=== PATIENT | female | born 2000 | race American Indian/Alaskan Native ===

== ENCOUNTER 2019-08-20 12:48 | Emergency (ER) | payer SELFPAY ==
--- NOTE | 2019-08-20 15:24 | Event Note ---
ED Screening Note ED Screening Note: this morning began having vaginal bleeding she is currently 12 weeks lower abd cramping states she is also having vaginal discharge which is now a different color LNMP: 05/26/19 states she moved here from [place], does not have an LOBBY ATTENDANT here /P:0/A:1 This initial assessment/diagnostic orders/clinical plan/treatment(s) is/are subject to change based on patients health status, clinical progression and re- assessment by fellow clinical providers in the ED. Further treatment and workup at subsequent clinical providers discretion. Patient/guardian urged not to elope from the ED as their condition may be serious if not clinically assessed and managed. Initial orders include: labs, UA, US
[2019-08-20 15:52] LABS: Basophils # (Auto) 0.1 K/mm3 (0.0-0.1); Basophils % (Auto) 0.5 % (0.0-1.8); Eosinophils # (Auto) 0.3 K/mm3 (0.0-0.4); Hematocrit 36.5 % (30.3-42.9); Hemoglobin 12.1 gm/dl (10.1-14.3); Lymphocytes # (Auto) 3.4 K/mm3 (1.2-5.4); Lymphocytes % (Auto) 23.2 % (13.4-35.0); Mean Corpuscular HGB Conc 33 % (30-34); Mean Corpuscular Volume 91 fl (79-97); Monocytes # (Auto) 0.7 K/mm3 (0.0-0.8); Monocytes % (Auto) 4.9 % (0.0-7.3); Platelet Count 362 K/mm3 (140-440); Red Blood Count 4.01 M/mm3 (3.65-5.03); Red Cell Distribution Width 13.6 % (13.2-15.2)
--- NOTE | 2019-08-20 16:46 | Ultrasound Report ---
ULTRASOUND OBSTETRIC INDICATION: 12 weeks with lower abdominal/pelvic cramping and vaginal spotting. TECHNIQUE: Transabdominal. COMPARISON: None available. FINDINGS: GESTATIONAL SAC: Well-defined oval shape and intrauterine in location. YOLK SAC: No significant abnormality. EMBRYO/FETUS: No significant abnormality. - [place]-Rump Length = 3.97 cm = 10 weeks, 6 day(s). - Heart Rate = None detected. ADNEXA: No significant abnormality. FREE FLUID: None. ADDITIONAL FINDINGS: None. IMPRESSION: First trimester intrauterine as above without sonographic detection of cardiac activi ty, which is concerning for demise. Please correlate with the clinical findings. Signer Name: Asif Childs MD Signed: 08/20/2019 4:42 PM Workstation Name: [id number]
[2019-08-20 16:55] LABS: Bilirubin,Urine NEG (Negative); Blood,Urine SM (Negative); Color,Urine Straw (Yellow); Protein,Urine <15 mg/dL mg/dL (Negative); Urobilinogen,Urine < 2.0 mg/dL (<2.0); WBC,Urine < 1.0 /HPF (0.0-6.0)
--- NOTE | 2019-08-20 19:34 | Emergency Department Report ---
ED Female HPI - General Chief complaint: Urogenital-Female Stated complaint: POSS MISCARRAGE Time Seen by Provider: 08/20/19 15:22 Source: patient Mode of arrival: Ambulatory Limitations: No Limitations - History of Present Illness Initial comments: 18-year-old female this morning began having vaginal bleeding . She is currently 12 weeks . Having lower abd cramping States she is also having vaginal discharge which is now a different color. LNMP: 05/26/19. States she moved here from [place], does not have an HEAT TREAT TECHNICIAN here. /P:0/A:1 Patient denies any past medical history currently takes no medications on a daily basis has no known drug allergies. Reports the pains a 4 out of 10. MD Complaint: vaginal bleeding, vaginal discharge, pelvic pain Severity: mild Severity scale (0 -10): 4 Quality: cramping Improves with: none Worsens with: none Are you Now?: Yes Last Menstrual Period: 05/26/19 EDC: 03/01/20 Associated Symptoms: vaginal discharge, vaginal bleeding. denies: n ausea/vomiting, fever/chills - Related Data Sexually active: Yes : 2 A: 1 (Miscarriage 1 year ago) Previous Rx's Medication Instructions Recorded Last Taken Type metroNIDAZOLE [Flagyl] 500 mg PO Q12HR 7 Days #14 tab 08/20/19 Unknown Rx Allergies Allergy/AdvReac Type Severity Reaction Status Date / Time No Known Allergies Allergy Unverified 08/20/19 13:36 ED Review of Systems ROS: Stated complaint: POSS MISCARRAGE Other details as noted in HPI Comment: All other systems reviewed and negative ED Past Medical Hx - Past Medical History Previous Medical History?: No - Surgical History Past Surgical History?: No - Social History Smoking Status: Never Smoker Substance Use Type: None - Medications Home Medications: Home Medications Medication Instructions Recorded Confirmed Last Taken Type metroNIDAZOLE [Flagyl] 500 mg PO Q12HR 7 Days #14 tab 08/20/19 Unknown Rx ED Physical Exam - General Limitations: No Limitations General appearance: alert, in no apparent distress - Head Head exam: Present: atraumatic, normocephalic - Eye Eye exam: Present: normal appearance - ENT ENT exam: Present: mucous membranes moist - Neck Neck exam: Present: normal inspection, full ROM - Respiratory Respiratory exam: Present: normal lung sounds bilaterally. Absent: respiratory distress - Cardiovascular Cardiovascular Exam: Present: regular rate, normal rhythm. Absent: systolic murmur, diastolic murmur, rubs, gallop - GI/Abdominal GI/Abdominal exam: Present: soft. Absent: distended, tenderness, guarding - External exam: Present: normal external exam Speculum exam: Present: vaginal discharge, vaginal bleeding Bi-manual exam: Present: normal bi-manual exam - Extremities Exam Extremities exam: Present: normal inspection - Back Exam Back exam: Present: normal inspection - Neurological Exam Neurological exam: Present: alert, oriented X3, normal gait - Psychiatric Psychiatric exam: Present: normal affect, normal mood - Skin Skin exam: Present: warm, dry, intact, normal color. Absent: rash ED Course Vital Signs 08/20/19 13:36 Temperature 99.1 F Pulse Rate 80 Respiratory 16 Rate Blood Pressure 146/78 O2 Sat by Pulse 100 Oximetry ED Medical Decision Making - Lab Data Result diagrams: 08/20/19 15:37 - Radiology Data Radiology results: report reviewed Patient Name: ELEAZAR MADRIGAL Gender: Female Date of : 2000 Referring Provider: KOTA VERNON Organization: [facility] Accession Number: [id number] Requested Date: August 20, 2019 15:24 Report Status: Final Requested Procedure: 1 Procedure Description: US OB <= 14 weeks fetus Modality: US Findings Reporting MD: Asif Childs Dictation Time: August 20, 2019 15:42 Crinkling Machine Operator: Not available Government Documents Librarian Date: ULTRASOUND OBSTETRIC INDICATION: 12 weeks with lower abdominal/pelvic cramping and vaginal spotting. TECHNIQUE: Transabdominal. COMPARISON: None available. FINDINGS: GESTATIONAL SAC: Well-defined oval shape and intrauterine in lo cation. YOLK SAC: No significant abnormality. EMBRYO/FETUS: No significant abnormality. - [place]-Rump Length = 3.97 cm = 10 weeks, 6 day(s). - Heart Rate = None detected. ADNEXA: No significant abnormality. FREE FLUID: None. ADDITIONAL FINDINGS: None. IMPRESSION: First trimester intrauterine as above without sonographic detection of cardiac activity, which is concerning for demise. Please correlate with the clinical findings. Signer - Medical Decision Making 18-year-old female this morning began having vaginal bleeding . She is currently 12 weeks . Having lower abd cramping States she is also having vaginal discharge which is now a different color. LNMP: 05/26/19. States she moved here from [place], does not have an HEAT TREAT TECHNICIAN here. /P:0/A:1 Patient denies any past medical history currently takes no medications on a daily basis has no known drug allergies. Reports the pains a 4 out of 10. Spoke to Dr. Rocio Ware HEAT TREAT TECHNICIAN provider from [facility]. She states give patient precautions for miscarriage have her follow-up in the clinic in the next 2 to 3 days. She will receive RhoGam injection for being a negative. Discussed concerns with patient she verbalized understanding. Critical care attestation.: If time is entered above; I have spent that time in minutes in the direct care of this critically ill patient, excluding procedure time. ED Disposition Clinical Impression: demise, Bacterial vaginosis in , Need for rhogam due to Rh negative mother Disposition: DC-01 TO HOME OR SELFCARE Is pt being admited?: No Does the pt Need Aspirin: No Condition: Stable Instructions: Bacterial Vaginosis (ED) Additional Instructions: Please follow-up with HEAT TREAT TECHNICIAN in the next 2 days. Complete your antibiotics for your bacterial infection. You can take Tylenol for any pain. Do not swim take baths until followed up by HEAT TREAT TECHNICIAN. Prescriptions: metroNIDAZOLE [Flagyl] 500 mg PO Q12HR 7 Days #14 tab Referrals: PRIMARY CARE, [Primary Care Provider] - 3-5 Days [facility] [Provider Group] - 3-5 Days Forms: STI Treatment and Prevention
[2019-08-20 20:11] VITALS: BP 123/74
== END 2019-08-20 21:22 | disposition home or self-care (01) ==
LOC: ED 12:48
DX: O03.9 Complete or unspecified spontaneous abortion without complication (principal); O23.591 Infection of other part of genital tract in pregnancy, first trimester; B96.89 Other specified bacterial agents as the cause of diseases classified elsewhere; Z3A.12 12 weeks gestation of pregnancy
CPT/HCPCS: 36415; 76801; 81001; 84702; 85025; 86900; 86901; 87210; 87591; 96372; 99284; J2790